=== PATIENT | female | born 1950 | race Caucasian/White ===

== ENCOUNTER → 2018-01-01 | Outpatient (CLI) | payer OTHER | END | disposition home or self-care (01) | LOC: CFH 09:13 | PROVIDERS: ATTEND Obstetrics & Gynecology Gynecology | DX: Z12.31 Encounter for screening mammogram for malignant neoplasm of breast (principal); N64.89 Other specified disorders of breast | CPT/HCPCS: 77067 ==

== ENCOUNTER → 2018-01-28 | Outpatient (CLI) | payer OTHER | LOC: CFH 11:31 | PROVIDERS: ATTEND Obstetrics & Gynecology Gynecology | DX: N64.89 Other specified disorders of breast (principal) | CPT/HCPCS: 77065 ==